=== PATIENT | male | born 1950 | race Caucasian/White ===

== ENCOUNTER 2018-09-23 22:42 | Emergency (ER) | payer OTHER ==
[~2018-09-23] VITALS: Wt 84.6 kg
[2018-09-23 22:48] VITALS: BP 170/77; PULSE 62; RESP 19
[2018-09-24] MEDS ORDERED: GELATIN POWDER 1 GM KIT TOP ONE (00:30)
[2018-09-24] MEDS ORDERED: LIDOCAINE 1% (MPF) 30 ML INJ INJ ONE (00:30)
[2018-09-24] MEDS ORDERED: DIPHTH/TET/ACEL PERTUSS (ADULT) 0.5 ML VIAL IM* ONE (00:30)
[2018-09-24] MEDS ORDERED: CEPH-443 PO (01:45)
--- NOTE | 2018-09-24 04:56 | ERD ---
ER Documentation Chief Complaint Chief Complaint BIB SELF, CC: LEFT HAND MIDDLE FINGER CRUSH INJURY YESTERDAY HPI This is a 68-year-old male presenting to the emergency department with a skin avulsion to his left distal volar aspect of his middle finger from a crush injury that occurred yesterday. Patient states that a stone fell on his finger. He denies any wrist range of motion states that it started bleeding today and would not stop bleeding that is why he came in today. Denies any medications. Does not member his last tetanus ROS All systems reviewed and are negative except as per history of present illness. Medications Home Meds Active Scripts Cephalexin* (Keflex*) 500 Mg Capsule, 500 MG PO Q6, #28 CAP Prov:ROBERTO CHAPARRO PA-C 09/24/18 Allergies Allergies: Coded Allergies: No Known Allergy (Unverified , 09/23/18) PMhx/Soc Medical and Surgical Hx: pt denies Medical Hx, pt denies Surgical Hx Hx Alcohol Use: No Hx Substance Use: No Hx Tobacco Use: No Smoking Status: Never smoker Physical Exam Vitals Vital Signs Date Temp Pulse Resp B/P (MAP) Pulse Ox O2 O2 Flow FiO2 Time Delivery Rate 09/23/18 98.2 62 19 170/77 100 22:48 (108) Physical Exam General: WD/WN, in no apparent distress, non-toxic appearing HENT: NC/AT Eyes: Conjunctiva normal Neck: Supple Pulm: Clear to auscultation, normal labored breathing; no wheezing/rales/rhonchi heard CV: Good capillary refill GI: Non-distended, no guarding Back: No masses Ext: No clubbing, cyanosis, or edema Neuro: Moves on all fours Skin: Skin avulsion to the distal volar aspect of the left finger. Full range of motion. No arterial injury noted. No tendon injury Psych: Normal mood Results 24 hrs Current Medications Medications Dose Sig/Zackery Start Time Status Last (Trade) Ordered Route PRN Stop Time Admin Dose Reason Admin Lidocaine 30 ml ONCE ONCE 09/24/18 DC (Xylocaine INJ 00:30 09/24/18 1% (Mpf)) 00:31 Gelatin 1 gm ONCE ONCE 09/24/18 DC (Gelfoam TOP 00:30 09/24/18 Powder Kit) 00:31 Diphtheria/ 0.5 ml ONCE ONCE 09/24/18 DC 09/24/18 Tetanus/Acell IM* 00:30 09/24/18 01:21 Pertussis 00:31 (Adacel) Procedures/MDM This is a 68-year-old male presenting with a skin avulsion of the distal left middle finger from a crush injury with a stone yesterday. On examination there was no evidence of arterial or tendon injury. It was cleansed with normal saline and Surgicel was applied to stop the wound from bleeding. Patient was given a pressure dressing and instructed to follow-up with his primary care physician tomorrow. In the ED patient was updated on his tetanus shot and I have given him strict return precautions. He understands agrees this plan Departure Diagnosis: Primary Impression: Crush injury Additional Impression: Skin avulsion Condition: Stable Patient Instructions: Crush Injury, Hand/Finger, Skin Avulsion Additional Instructions: Platte toda la medicina kimberley y ariel se le indic. Visite a [facility] para un EXAMEN.Regrese a estas instalaciones si no se mejora ariel esperbamos o ariel le dijimos. Regrese a estas instalaciones si no se mejora ariel esperbamos o ariel le dijimos. ROBERTO CHAPARRO PA-C Sep 24, 2018 04:56
== END 2018-09-24 03:22 | disposition home or self-care (01) ==
LOC: FTE 22:42
DX: S67.193A Crushing injury of left middle finger, initial encounter (principal); S61.203A Unspecified open wound of left middle finger without damage to nail, initial encounter; W20.8XXA Other cause of strike by thrown, projected or falling object, initial encounter; Y92.9 Unspecified place or not applicable; Z23 Encounter for immunization
CPT/HCPCS: 73140; 90471; 90715